=== PATIENT | female | born 1990 | race Caucasian/White ===

== ENCOUNTER 2025-07-20 19:20 | Emergency (ER) | payer BC ==
--- OUTSIDE RECORDS SUMMARY | 2025-07-20 19:23 | XMS REPORT | Continuity of Care Document ---
Author Name Unknown Address [address] [place] [address] [facility] Address [address] [facility] [address] [place] [address] Care Team Providers Care Dam Operator Name Role Phone MIMA ZAIDI Attending Clinician Unavailable Dyan Attending Clinician Unavailable Chiquita Beach Attending Clinician Unavailable Dyan Admitting Clinician Unavailable Chiquita Beach Admitting Clinician Unavailable Payers Payer Name Policy Type Policy Number Effective Date Expirati on Date Source [facility] ([place]) [id number] 2018 00:00:00 2023 00:00:00 Problems Condition Name Condition Details Condition Category Status Onset Date Resolution Date Last Treatment Date Treating Clinician Comments Source Allergic rhinitis Allergic Rhinitis Problem Active [facility] Shoulder pain Shoulder Pain Problem Active [facility] Fatigue Fatigue Problem Active [facility] Allergies, Adverse Reactions, Alerts Allergy Name Allergy Type Status Severity Reaction(s) Onset Date Inactive Date Treating Clinician Comments Source No Known Allergie s DA Active U 04-15 00:00: 00 [facility] Social History Smoking Status Start Date Stop Date Source Never Smoker [facility] Medications Ordered Medication Name Filled Medication Name Start Date Stop Date Current Medication? Ordering Clinician Indication Dosage Frequency Signature (SIG) Comments Components Source ibuprofen ibuprofen No ibuprofen [facility] Zyrtec Zyrtec No Zyrtec [facility] Immunizations Ordered Immunization Name Filled Immunization Name Date Status Comments Source Tdap Tdap Unknown Completed [facility] influenza, injectable, quadrivalent, preservative free influenza, injectable, quadrivalent, preservative free Unknown Completed [facility] Vital Signs Vital Name Observation Time Observation Value Comments S ource BP Diastolic 2025-01-15 00:00:00 71 mm[Hg] [facility] Body Weight 2025-01-15 00:00:00 127.2 [lb_av] [facility] Height 2025-01-15 00:00:00 63 [in_i] [facility] BP Systolic 2025-01-15 00:00:00 112 mm[Hg] [facility] BMI (Body Mass Index) 2025-01-15 00:00:00 22.5 kg/m2 [facility] BMI (Body Mass Index) 2024-12-24 00:00:00 22.5 kg/m2 [facility] Body Weight 2024-12-24 00:00:00 2032 [oz_av] [facility] Height 2024-12-24 00:00:00 63 [in_i] [facility] BP Systolic 2024-12-24 00:00:00 105 mm[Hg] [facility] BP Diastolic 2024-12-24 00:00:00 70 mm[Hg] [facility] BMI (Body Mass Index) 2024-05-27 00:00:00 22.9 kg/m2 [facility] BP Diastolic 2024-05-27 00:00:00 71 mm[Hg] [facility] Body Weight 2024-05-27 00:00:00 2072 [oz_av] [facility] Height 2024-05-27 00:00:00 63 [in_i] [facility] BP Systolic 2024-05-27 00:00:00 106 mm[Hg] [facility] BMI (Body Mass Index) 2023-11-04 00:00:00 22.5 kg/m2 [facility] Body Weight 2023-11-04 00:00:00 2032 [oz_av] [facility] Height 2023-11-04 00:00:00 63 [in_i] [facility] BP Systolic 2023-11-04 00:00:00 101 mm[Hg] [facility] BP Diastolic 2023-11-04 00:00:00 62 mm[Hg] [facility] Procedures Procedure Date / Time Performed Performing Clinicia n Source US, transvaginal 2025-01-22 00:00:00 [facility] [id number] 2022-01-16 00:00:00 [facility] [id number] 2022-01-16 00:00:00 [facility] [id number] 2022-01-16 00:00:00 [facility] Encounters Start Date/Time End Date/Time Encounter Type Admission Type Attending Clinicians Care Facility Care Department Encounter ID Source 2025-01-22 00:00:00 2025-01-22 00:00:00 BREN WhittingtonBC: [address], [address], [place] [address] , Ph. [phone] [facility] [id number] [facility] 2025-01-15 00:00:00 2025-01-15 00:00:00 BREN WhittingtonBC: [address], [address], [place] [address] , Ph. [phone] [facility] [id number] [facility] 2024-12-24 11:58:00 2024-12-24 11:58:00 Outpatient [facility] [id number] [facility] 2024-12-24 00:00:00 2024-12-24 00:00:00 Mima Zaidi, STORAGE MANAGER: [address], [address], [place] [address] , [facility] [phone] [facility] 2024-05-27 00:00:00 2024-05-27 00:00:00 ZULEIKA DuvalC: [address], [address], [place] [address] , Ph. MMG [facility] [phone] [facility] 2024-02-17 00:00:00 2024-02-17 00:00:00 Outpatient [facility] [id number] [facility] 2023-11-04 15:26:00 2023-11-04 15:26:00 Outpatient [facility]Z [facility] [id number] [facility] 2023-11-04 00:00:00 2023-11-04 00:00:00 Mima Zaidi, STORAGE MANAGER: [address] [facility] [address], [address], [place] [address] , [facility]. [facility] [id number] [facility] 2022-01-15 20:08:00 2022-01-17 12:29:00 Inpatient SOTERO Chiquita Beach [facility] OBPP [id number] 27 [facility] 2020-04-25 15:14:00 2020-04-25 15:14:00 Outpatient MIMA [facility]ALEZ [facility] [id number] [facility] 2018-12-01 16:00:00 2018-12-01 16:00:00 Outpatient MIMA [facility]ON[facility]ALEZ [facility] [id number] [facility] 2016-08-01 10:50:00 2016-08-01 10:50:00 Outpatient MIMA [facility]ON[facility]ALEZ [facility] [id number] [facility] Results Test Description Test Time Test Comments Results Result Co mments Source [facility] [id number] 15:30:00* Test Item Value Reference Range Interpretation Comme nts report summary (test code = report summary) Cancer Risk Assessment for Patient: Jason Green (Risk Level: LOW) [facility], [id number] 10:18:52* Test Item Value Reference Range Interpretation Comme nts Test (test code = Test) negative [facility]ysis, [id number] 10:01:39* Test Item Value Reference Range Interpretation Comme nts Leukocytes (test code = Leukocytes) Negative Nitrite (test code = Nitrite) negative Urobilinogen (test code = Urobilinogen) .2 Protein (test code = Protein) Negative pH (test code = pH) 6.5 Blood (test code = Blood) Large Specific Flushing (test code = Specific Flushing) 1.015 Ketone (test code = Ketone) Negative Bilirubin (test code = Bilirubin) Negative Glucose (test code = Glucose) Negative Appearance (test code = Appearance) Clear [facility] GroupEstradiol (E2) [Mass/volume] in Serum or [id number] 00:00:00* Test Item Value Reference Range Interpretation Comme nts Estradiol (E2) [Mass/volume] in Serum or Plasma (test code = 2243-4) 57.4 pg/mL [facility] GroupFollitropin and Lutropin panel [Units/volume] - Serum or [id number] 00:00:00* Test Item Value Reference Range Interpretation Comme nts Lutropin [Units/volume] in S elsy or Plasma (test code = 64204-6) 6.5 mIU/mL [facility] GroupFollitropin [Units/volume] in Serum or [id number] 00:00:00* Test Item Value Reference Range Interpretation Comme nts Follitropin [Units/volume] i n Serum or Plasma (test code = 70311-1) 6.2 mIU/mL [facility] GroupThyrotropin [Units/volume] in Serum or [id number] 00:00:00* Test Item Value Reference Range Interpretation Comme nts Thyrotropin [Units/volume] i n Serum or Plasma by Detection limit <= 0.005 mIU/L (test code = 20012-8) 3.950 uIU/mL 0.450-4.500 [facility] GroupTestosterone [Mass/volume] in Serum or [id number] 00:00:00* Test Item Value Reference Range Interpretation Comme nts Testosterone [Mass/volume] i n Serum or Plasma (test code = 2986-8) <3 8-60 L [facility] HospitalProgesterone [Mass/volume] in Serum or [id number] 00:00:00* Test Item Value Reference Range Interpretation Comme nts Progesterone [Mass/volume] i n Serum or Plasma (test code = 2839-9) <0.1 [facility] GroupProlactin [Mass/volume] in Serum or [id number] 00:00:00* Test Item Value Reference Range Interpretation Comme nts Prolactin [Mass/volume] in S elsy or Plasma (test code = 2842-3) 9.5 NG/mL 4.8-33.4 [facility]all[facility] blood [id number] 11:57:00* Test Item Value Reference Range Interpretation Comme [facility] blood collection (test code = labcorp blood collection) [facility]Jeff[facility] Centerrap[facility] strep group A, [id number] 15:25:33* Test Item Value Reference Range Interpretation Comme [facility] Strep Result (test code = St rep Result) negative [facility] HospitalInfluenza virus A and B and SARS-CoV+SARS-CoV-2 (COVID- 19) Ag panel - Upper respiratory specimen byRapid [id number] 15:25:29 * Test Item Value Reference Range Interpretation Comme [facility] RAPID SARS COV (test code = RAPID SARS COV) positive RAPID FLU A (test code = RAP ID FLU A) negative RAPID FLU B (test code = RAP ID FLU B) negative [facility] HospitalCobalamin (Vitamin B12) [Mass/volume] in Serum or Plasma 2023-11-04 18:38:00* Test Item Value Reference Range Interpretation Comme nts vitamin B12 (test code = vit lucas B12) 551.1 pg/mL 211-946 [facility] HospitalFolate [Mass/volume] in Serum or [id number] 18:38:00* Test Item Value Reference Range Interpretation Comme nts folate (test code = folate) 9.87 NG/mL 4.78-24.2 [facility] Hospitalvitamin [id number] 18:38:00* Test Item Value Reference Range Interpretation Comme nts vitamin B12 (test code = vit lucas B12) 551.1 pg/mL 211-946 [facility] Hospitalfolate2023-12-11 18:38:00* Test Item Value Reference Range Interpretation Comme nts folate (test code = folate) 9.87 NG/mL 4.78-24.2 [facility] HospitalThyrotropin [Units/volume] in Serum or [id number] 17:09:00* Test Item Value Reference Range Interpretation Comme nts thyroid stimulating hormone L (test code = thyroid stimulating hormone L) 1.50 uIU/mL 0.36-3.74 [facility] HospitalComprehensive metabolic 2000 panel - Serum or Plasma 2023-11-04 16:54:00* Test Item Value Reference Range Interpretation Comme nts glucose (test code = glucose) 105 mg/dL 74-106 blood urea nitrogen (test co de = blood urea nitrogen) 9 mg/dL 6-20 osmolality calculated,serum (test code = osmolality calculated,serum) 277 mOsm/kg 280-300 L creatinine (test code = creatinine) 0.55 mg/dL 0.50-0.90 glomerular filtration rate ( test code = glomerular filtration rate) > 60.00 BUN/creatinine ratio (test c ode = BUN/creatinine ratio) 16.4 12.0-20.0 sodium level (test code = so dium level) 139 mmol/L 135-145 potassium level (test code = potassium level) 4.0 mmol/L 3.5-5.2 chloride level (test code = chloride level) 102 mmol/L 98-108 CO2 (test code = CO2) 24 mmol/L 21-32 anion gap (test code = anion gap) 17.0 mEq/L 12.0-20.0 calcium level (test code = calcium level) 9.9 mg/dL 8.6-10.0 total protein (test code = t otal protein) 7.7 g/dL 6.6-8.7 albumin (test code = albumin) 4.8 g/dL 3.5-5.2 globulin (test code = globulin) 2.9 g/dL 1.5-4.5 A/G ratio (test code = A/G ratio) 1.7 >1.0 bilirubin,total (test code = bilirubin,total) 0.4 mg/dL 0.0-1.2 AST/SGOT (test code = AST/SGOT) 12 U/L 15-32 L ALT/SGPT (test code = ALT/SGPT) 11 U/L 0-33 alkaline phosphatase, total (test code = alkaline phosphatase, total) 47 U/L 35-105 [facility] Hospitallipid [id number] 16:54:00* Test Item Value Reference Range Interpretation Comme nts cholesterol level (test code = cholesterol level) 181 mg/dL 150-200 triglycerides level (test co de = triglycerides level) 65 mg/dL <150 HDL cholesterol (test code = HDL cholesterol) 77 mg/dL >65 Cholesterol in LDL [Mass/vol ume] in Serum or Plasma (test code = 2089-1) 96 mg/dL <100 cholesterol risk ratio (test code = cholesterol risk ratio) 2.350 [facility] 1996 panel - Serum or [id number] 16:54:00* Test Item Value Reference Range Interpretation Comme nts cholesterol level (test code = cholesterol level) 181 mg/dL 150-200 triglycerides level (test co de = triglycerides level) 65 mg/dL <150 HDL cholesterol (test code = HDL cholesterol) 77 mg/dL >65 Cholesterol in LDL [Mass/vol ume] in Serum or Plasma (test code = 2089-1) 96 mg/dL <100 cholesterol risk ratio (test code = cholesterol risk ratio) 2.350 [facility] HospitalCB W Auto Differential panel - [id number] 16:26:00 * Test Item Value Reference Range Interpretation Comme nts white blood count (test code = white blood count) 10.7 K/uL 4.0-11.5 red blood count (test code = red blood count) 4.36 M/uL 3.80-5.20 hemoglobin (test code = hemoglobin) 13.0 g/dL 10.5-15.7 hematocrit (test code = hematocrit) 40.2 % 34.0-50.0 mean corpuscular volume (santosh t code = mean corpuscular volume) 92.2 fL 86.0-100.0 mean corpuscular hemoglobin (test code = mean corpuscular hemoglobin) 29.8 pg 26.2-33.4 mean corpuscular HGB conc (t est code = mean corpuscular HGB conc) 32.3 g/dL 30.0-34.0 red cell distribution width (test code = red cell distribution width) 12.1 % 12.0-15.5 platelet count (test code = platelet count) 230 K/uL 165-450 mean platelet volume (test c ode = mean platelet volume) 10.4 fL 9.4-12.6 neutrophils % (test code = neutrophils %) 71.0 % 44.4-80.1 Ig% (test code = Ig%) 0.4 % 0.0-0.4 lymphocyte% (test code = lymphocyte%) 19.8 % 10.0-50.0 mono % (test code = mono %) 6.8 % 3.6-12.0 eos % (test code = eos %) 1.6 % 0.0-5.4 basophil % (test code = baso shashi %) 0.4 % 0.1-1.2 absolute neutrophil count (t est code = absolute neutrophil count) 7.63 K/uL 1.56-6.13 H Ig# (test code = Ig#) 0.04 K/uL 0.00-0.03 H lymph # (test code = lymph #) 2.13 K/uL 1.18-3.74 mono # (test code = mono #) 0.73 K/uL 0.24-0.86 eos # (test code = eos #) 0.17 K/uL 0.04-0.36 basophil # (test code = baso shashi #) 0.04 K/uL 0.01-0.08 NRBC% (test code = NRBC%) 0 /100 WBC 0-0.2 NRBC# (test code = NRBC#) 0 K/uL [facility]25-Hydroxyvitamin D3+25-Hydroxyvitamin D2 [Mass/volume] in Serum or [id number] 00:00:00* Test Item Value Reference Range Interpretation Comme nts vit D 25 hydroxy (test code = vit D 25 hydroxy) 18.83 NG/mL 6.4-49.5 [facility]AB [id number] 20:11:00* Test Item Value Reference Range Interpretation Comme nts AB TREPONEMA (test code = TREPAB) NONREACTIVE NONREACTIVE AB HIV 1 20:11:00* Test Item Value Reference Range Interpretation Comme nts AB HIV 1 2 (test code = JBJ57OI) NONREACTIVE NONREACTIVE Done by [employer] 4th Gen HIV Ag/Ab Combo Screen AG HEPATITIS B [id number] 20:11:00* Test Item Value Reference Range Interpretation Comme nts AG HEPATITIS B SURFACE (test code = HBSAG) NONREACTIVE NONREACTIVE AB HEPATITIS C [id number] 20:11:00* Test Item Value Reference Range Interpretation Comme nts AB HEPATITIS C (test code = HCVAB) NONREACTIVE NONREACTIVE SIGNAL TO CUTOFF (test code = CUTOFF) 0.09 <0.80 N COVID 19 Asymptomatic IH [id number] 19:09:00* Test Item Value Reference Range Interpretation Comme nts COVID 19 Asymptomatic IH AG (test code = COVNONPUIAG) NEGATIVE NEGATIVE This test has be en authorized only for the detection ofproteins from SARS-CoV-2, not for any other viruses orpathogens. Negative results should be treated as presumptive andconfirmed with a molecular assay, if necessary for patientmanagement. Negative results do not rule out COVID-19 andshould not be used as the sole basis for treatment orpatient management decisions, including infection controldecisions. Negative results should be considered in thecontext of a patient's recent exposures, history and thepresence of clinical signs and symptoms consistent withCOVID-19. This test has not been FDA cleared or approved; the test hasbeen authorized by FDA under an Emergency Use Authorization(EUA) for use by laboratories certified under the CLIA thatmeet the requirements to perform moderate, high or waivedcomplexity tests. This test is authorized for use at thePoint of Care (POC), i.e., in patient care settingsoperating under a CLIA Certificate of Waiver, Certificate ofCompliance, or Certificate of Accreditation. This test is only authorized for the duration of thedeclaration that circumstances exist justifying theauthorization of emergency use of in vitro diagnostic testsfor detection and/or diagnosis of COVID-19 under Zmezkiu529(b)(1) of the Act, 21 U.S.C. 360bbb-3(b)(1), unless theauthorization is terminated or revoked sooner. CBC W/AUTO [id number] 18:35:00* Test Item Value Reference Range Interpretation Comme nts WHITE BLOOD CELL (test code = WBC) 11.1 K/mm3 6.5-12.3 N RED BLOOD CELL (test code = RBC) 3.58 M/mm3 3.51-4.69 N HEMOGLOBIN (test code = HGB) 11.1 g/dL 10.1-13.8 N HEMATOCRIT (test code = HCT) 34.0 % 32.5-41.8 N MEAN CELL VOLUME (test code = MCV) 95.0 fL 84.6-96.6 N MEAN CELL HGB (test code = MCH) 31.0 pg 27.3-33.9 N MEAN CELL HGB CONCETRATION ( test code = MCHC) 32.6 gm/dL 32.0-34.2 N RED CELL DISTRIBUTION WIDTH (test code = RDW) 13.7 % 12.2-16.3 N PLATELET COUNT (test code = PLT) 191 K/mm3 134-363 N MEAN PLATELET VOLUME (test c ode = MPV) 11.0 fL 9.2-12.7 N NEUTROPHIL % (test code = NT%) 74.3 % 57.9-77.3 N LYMPHOCYTE % (test code = LY%) 15.6 % 14.5-29.7 N MONOCYTE % (test code = MO%) 7.5 % 3.6-10.2 N EOSINOPHIL % (test code = EO%) 0.7 % 0.0-3.0 N BASOPHIL % (test code = BA%) 0.4 % 0.1-0.9 N NEUTROPHIL # (test code = NT#) 8.3 K/mm3 LYMPHOCYTE # (test code = LY#) 1.7 K/mm3 MONOCYTE # (test code = MO#) 0.8 K/mm3 EOSINOPHIL # (test code = EO#) 0.08 K/mm3 BASOPHIL # (test code = BA#) 0.0 K/mm3 RBC MORPHOLOGY REQUIRED (santosh t code = RBCM) NORMAL NORMAL PLATELET MORPHOLOGY REQUIRED (test code = PLTMR) NORMAL NORMAL Notes Date/Time Note Provider Source 2022-01-17 06:43:00 [facility] OB Disch REPORT#:[id number] REPORT STATUS: Signed DATE:01/17/22 TIME: 642 PATIENT: JASON GREEN UNIT #: [id number] ROOM/BED: [address] : [address] AGE: 31 SEX: F ATTEND: Chiquita Beach MD ADM AUTHOR: Chiquita Beach MD * ALL edits or amendments must be made on the electronic/computer document * Subjective Subjective Admission EGA: Weeks: 39 Days: 6 EGA at delivery (wks/days): 40 weeks Status/day: post (day 1) Patient reports: Patient reports: Yes: normal lochia, pain management effective, tolerating po well, voiding well, voiding without pain, tolerating ambulation, flatus. No: complaints. Objective General VS: Vital Signs Date Temp Pulse Resp B/P B/P Mean Pulse Ox FiO2 01/16 98.0-98.6 71-82 17-18 103-113/-74 98 Last Documented: Result Date Time B/P 11301/16 Temp 98.6 01/16 2339 Pulse 71 01/16 233 Resp 18 01/16 2339 Pulse Ox 98 01/16 0829 B/P Mean 88.0 01/16 0413 PATIENT WEIGHT: Weight (lb): 171 Weight (oz): 4.79 Weight (kg): 77.700 Physical Exam Abdomen: post gravid, soft, no abnormal tenderness, no guarding, no rebound tenderness Fundus: firm, below the umbilicus, non-tender Lochia: normal Lower extremities: Edema: trace Results Findings/Data: Laboratory Tests: 01/15 01/15 01/15 1805 1805 1749 Hematology WBC (6.5 - 12.3 K/mm3) 11.1 RBC (3.51 - 4.69 M/mm3) 3.58 Hgb (10.1 - 13.8 g/dL) 11.1 Hct (32.5 - 41.8 %) 34.0 MCV (84.6 - 96.6 fL) 95.0 MCH (27.3 - 33.9 pg) 31.0 MCHC (32.0 - 34.2 gm/dL) 32.6 RDW (12.2 - 16.3 %) 13.7 Plt Count (134 - 363 K/mm3) 191 MPV (9.2 - 12.7 fL) 11.0 Neut % (Auto) (57.9 - 77.3 %) 74.3 Lymph % (Auto) (14.5 - 29.7 %) 15.6 Benton % (Auto) (3.6 - 10.2 %) 7.5 Eos % (Auto) (0.0 - 3.0 %) 0.7 Baso % (Auto) (0.1 - 0.9 %) 0.4 Neut # (Auto) (K/mm3) 8.3 Lymph # (Auto) (K/mm3) 1.7 Benton # (Auto) (K/mm3) 0.8 Eos # (Auto) (K/mm3) 0.08 Baso # (Auto) (K/mm3) 0.0 Serology Treponema pallidum Ab (NONREACTIVE) NONREACTIVE Hep Bs Antigen (NONREACTIVE) NONREACTIVE Hepatitis C Antibody (NONREACTIVE) NONREACTIVE Hep C Ab Signal/Cutoff (<0.80) 0.09 HIV 1 2 Antibody (NONREACTIVE) NONREACTIVE SARS-CoV-2 Ag (Rapid) (NEGATIVE) NEGATIVE Discharge Summary General Free Text A P: 31y s/p TSVD at 40.0 here for eIOL 1. PPD 1 - afvss, voiding, pain controlled, tolerating diet 2. Rh+/RI/; GBS neg, COVID neg 3. PMH: mitral valve prolapse 4. PSH: denies 5. OB: baby girl! Lissa Del Real 6. Anticipate dc home today if infant cleared for discharge, will put in discharge order with parameters. Assessment: nml progress Date of admission: Date of admission: 01/15/22 Hospital course: induction of labor Discharge condition: stable Discharge to: Home/Self Care Discharge diagnosis: full-term uncomp delivery Discharge management: greater than 30 mins Time spent: >50% spent on counseling/coordination of care: yes Baby A: Vaginal delivery: spontaneous status: live born Gender: female (Lissa Del Real) 1 minute: 8 5 minutes: 9 Nursing data: The data set between the solid lines has been imported from nursing documentation. Any exceptions have been noted below under Provider comments. Delivery date infant A: 01/16/22 Delivery time infant A: 0054 Birthweight (gm) A: 2890 Feeding preference: Gender infant A: Female 1 minute infant A: 5 minutes infant A: 10 minutes infant A: Provider comments on imported nursing data: [] Plan: routine care Vaginal packing at delivery: No Discharge Instructions Instructions: routine instr sheet given, instr and warnings rev'd, specific instr as noted Diet: Resume Home Diet/Feeds, Regular Activity: As Tolerated Additional discharge routines: PCP Follow-Up Contraception discussed: abstinence for 4-6 weeks, will discuss at PP visit Discharge meds: Continue taking these medications: PNV WITH CA/IRON/FA/DHA (PRENATE ESSENTIAL) 1 EACH CAP 1 CAPSULE ORAL DAILY. CALCIUM CARBONATE (CALCI-CHEW 1250 MG) 1 TAB.CHEW TAB.CHEW 500 MILLIGRAM ORAL DAILY. IRON (IRON) 18 MG TAB Start taking the following new medications: IBUPROFEN (MOTRIN) 600 MG TAB 600 MILLIGRAM ORAL EVERY 6 HOURS NEEDED. as needed for PAIN SCALE 1-3 ( USE 2ND) Qty = 20 No Refills Prescriptions: e-prescribe at 0723 RPT #:[id number] END OF REPORT [facility] 2022-01-16 08:29:00 [facility] OB Postpart Progr Note REPORT#:[id number] REPORT STATUS: Signed DATE:01/16/22 TIME: 828 PATIENT: JASON GREEN UNIT #: [id number] ROOM/BED: [address] : [birth year] AGE: 31 SEX: F ATTEND: Chiquita Beach MD ADM AUTHOR: Chiquita Beach MD * ALL edits or amendments must be made on the electronic/computer document * Subjective Subjective Admission EGA: Weeks: 39 Days: 6 EGA at delivery (wks/days): 40 weeks Status/Day: post (day 0) Patient reports: Patient reports: Yes normal lochia, Yes pain management effective, Yes tolerating po well, Yes voiding well, Yes voiding without pain, Yes tolerating ambulation, Yes flatus, No no complaints Objective Nursing Documentation Review Nursing Data: The data set between the solid lines has been imported from nursing documentation. Any exceptions have been noted below under Provider comments. Feeding preference: Post hemorrhage risk score: Low Risk for Hemorrhage Provider comments on imported nursing data: [] General VS: Vital Signs: Date Time Temp Pulse Resp B/P B/P Pulse O2 O2 Flow FiO2 Mean Ox Delivery Rate 01/16 0413 88.0 01/16 0413 78 116/70 01/16 0358 93.0 01/16 0358 72 129/69 01/16 0345 70.0 01/16 0345 78 114/56 01/16 0328 83.0 01/16 0328 73 116/61 01/16 0313 80.0 01/16 0313 78 117/60 01/16 0258 83.0 01/16 0258 67 111/65 01/16 0243 80.0 01/16 0243 65 109/62 01/16 0228 90.0 01/16 0228 69 116/75 01/16 0213 84.0 01/16 0213 70 114/69 01/16 0158 81.0 01/16 0158 72 102/70 01/16 0153 82.0 01/16 0153 70 108/67 01/16 0131 77.0 01/16 0131 69 123/53 01/16 0110 77.0 01/16 0110 97.8 73 16 102/60 01/16 0105 70.0 01/16 0105 68 94/55 01/16 0100 78.0 01/16 0100 74 111/54 01/16 0048 74.0 01/16 0048 56 105/51 01/16 0041 73.0 01/16 0041 78 101/55 01/16 0031 75.0 01/16 0031 81 100/65 01/15 191 85.0 01/15 191 98.4 84 16 121/62 PATIENT WEIGHT: Weight (lb): 171 Weight (oz): 4.79 Weight (kg): 77.700 Physical Exam Neuro: Exam: alert, oriented x3, normal speech Abdomen: soft, no abnormal tenderness, no guarding, no rebound tenderness, normoactive bowel sounds Fundus: firm, below the umbilicus Lochia: normal Lacerations: Perineal laceration(s): 1st Degree High vaginal laceration: no Lower extremities: Edema: trace Result Findings/Data: Laboratory Tests: 01/15 01/15 01/15 1805 1805 1749 Hematology WBC (6.5 - 12.3 K/mm3) 11.1 RBC (3.51 - 4.69 M/mm3) 3.58 Hgb (10.1 - 13.8 g/dL) 11.1 Hct (32.5 - 41.8 %) 34.0 MCV (84.6 - 96.6 fL) 95.0 MCH (27.3 - 33.9 pg) 31.0 MCHC (32.0 - 34.2 gm/dL) 32.6 RDW (12.2 - 16.3 %) 13.7 Plt Count (134 - 363 K/mm3) 191 MPV (9.2 - 12.7 fL) 11.0 Neut % (Auto) (57.9 - 77.3 %) 74.3 Lymph % (Auto) (14.5 - 29.7 %) 15.6 Benton % (Auto) (3.6 - 10.2 %) 7.5 Eos % (Auto) (0.0 - 3.0 %) 0.7 Baso % (Auto) (0.1 - 0.9 %) 0.4 Neut # (Auto) (K/mm3) 8.3 Lymph # (Auto) (K/mm3) 1.7 Benton # (Auto) (K/mm3) 0.8 Eos # (Auto) (K/mm3) 0.08 Baso # (Auto) (K/mm3) 0.0 Serology Treponema pallidum Ab (NONREACTIVE) NONREACTIVE Hep Bs Antigen (NONREACTIVE) NONREACTIVE Hepatitis C Antibody (NONREACTIVE) NONREACTIVE Hep C Ab Signal/Cutoff (<0.80) 0.09 HIV 1 2 Antibody (NONREACTIVE) NONREACTIVE SARS-CoV-2 Ag (Rapid) (NEGATIVE) NEGATIVE Diagnosis, Assessment Plan Diagnosis, Assessment Plan Free text A P: 31y s/p TSVD at 40.0 here for eIOL 1. PPD 0 - afvss, voiding, pain controlled, tolerating diet 2. Rh+/RI/; GBS neg, COVID neg 3. PMH: mitral valve prolapse 4. PSH: denies 5. OB: baby girl! Lissa Del Real 6. Anticipate dc home PPD 1/ Assessment: nml progress Plan: routine care Plan discussed with: patient, spouse/partner at 0931 RPT #:[id number] END OF REPORT [facility] 2022-01-16 01:38:00 [facility] ([facility]) OB Delivery Note REPORT#:[id number] REPORT STATUS: Signed DATE:01/16/22 TIME: 137 PATIENT: JASON GREEN UNIT #: [id number] ROOM/BED: [address] : 91 AGE: 31 SEX: F ATTEND: Chiquita Beach MD ADM AUTHOR: Jessenia Carbajal MD * ALL edits or amendments must be made on the electronic/computer document * OB Delivery Pre-delivery GBS status: GBS status: negative [place] evaluation at delivery: NRP certified personnel Admission EGA: Weeks: 39 Days: 6 EGA at delivery (wks/days): 40 weeks Baby A Information Baby A information Delivery date: 01/16/22 Delivery time: 53 status: live born Wt of baby: not yet available Gender: female (Lissa Del Real) 1 minute: 8 5 minutes: 9 Presentation: vertex ABG details Baby A Cord blood gases: not collected Nuchal cord Baby A Nuchal cord: yes (loose and reduced) Vaginal Delivery Vaginal delivery: Labor: induced Medications/Devices used: oxytocin Vaginal delivery: spontaneous Amniotic fluid: clear Anesthesia type: epidural anesthesia Episiotomy: none Episiotomy repair: not applicable Laceration repair: yes, 2-0 suture Placenta: spontaneous, expressed, intact Post delivery meds used: oxytocin Count: correct, vag exam neg for sponges Vaginal packing: No Mother's condition: mother stable Infant's condition: infant stable in room Lacerations: Perineal laceration(s): 1st Degree High vaginal laceration: no Additional comments: As the head crowned and delivered, the perineum was protected with blue towel. The anterior shoulder delivered with gentle downward traction and posterior shoulder with gentle upward traction. A nuchal cord x1 was noted and easily reduced. The infant was placed on maternal abdomen, bulb suctioned, the cord clamped and cut after 60 seconds, then handed to the waiting mother. Placenta delivered spontaneously and intact. Hemostasis achieved with fundal massage and IV pitocin. A small 1st degree perineal laceration was noted and repaired with figure of eight of 2-0 vicryl. Sponge, lap, and needle counts correct x 2, lap scan negative. Good maternal-infant bonding noted Blood Loss/Details Blood loss at delivery: <1K: no sx hypovol=no hem QBL at delivery (ml's): 87 at 0140 RPT #:[id number] END OF REPORT [facility] 2022-01-15 21:22:00 [facility] ([facility]) Clinical Note REPORT#:[id number] REPORT STATUS: Signed DATE:01/15/22 TIME: 2121 PATIENT: JASON GREEN UNIT #: [id number] ROOM/BED: [address] : 91 AGE: 31 SEX: F ATTEND: Chiquita Beach MD ADM AUTHOR: Jessenia Carbajal MD * ALL edits or amendments must be made on the electronic/computer document * Clinical Note Note: see paper H P 31y at 39w6d here for eIOL 1. IOL - pelvis adequate - epidural prn - pit 2x2, s/p arom 2. Rh+/RI/; GBS neg, COVID neg 3. PMH: mitral valve prolapse 4. PSH: denies 5. OB: baby girl! Lissa Del Real, EFW 3400g dispo: continue IOL, anticipate at 2126 RPT #:[id number] END OF REPORT [facility]
[2025-07-20 19:56] LABS: Absolute Lymphocytes (CBC) 2.1 K/uL (0.7-4.9); Hematocrit 34.5 % (36.0-45.0); Hemoglobin 11.7 g/dL (12.0-15.0); MCH 31.1 pg (27.0-35.0); MCHC 34.0 g/dL (32.0-36.0); MCV 91.6 fL (80-100); MPV 8.5 fL (7.6-11.3); Nucleated RBC Absolute Count 0.0 (0-0); Nucleated Red Blood Cells % 0.0 % (0-0); RBC Red Blood Cell Count 3.76 M/uL (3.86-4.86); White Blood Count 8.40 thou/uL (4.3-10.9)
[2025-07-20 20:30] LABS: Anion Gap 8.2 mEq/L (5.0-15.0); BUN Blood Urea Nitrogen 11.0 mg/dL (7-18); Glucose Level 90.0 mg/dL (74-106); HCG, Quantitative 10913.0 mIU/mL (1-3); Potassium 3.2 mEq/L (3.5-5.1)
--- NOTE | 2025-07-20 20:42 | RAD REPORT ---
EXAMINATION: US FIRST TRIMESTER TRANSVAGINAL WITH DOPPLER CLINICAL INDICATION: with pelvic pain TECHNIQUE: Real-time obstetrical ultrasonography of the maternal pelvis and first trimester was performed transvaginally. Color and spectral Doppler evaluation of the ovaries was performed. COMPARISON: No prior exam. FINDINGS: The uterus measures 10 x 6 x 6 cm. A gestational sac is present within the endometrium measuring 8 mm. Within this is a yolk sac. pole with a crown rump length 3 mm. Cardiac activity 144 bpm. Right ovary normal in size and echotexture Left ovary normal in size and echotexture Right and left adnexa unremarkable No significant free fluid IMPRESSION: Single live intrauterine with an estimated gestational age 5 weeks 5 days JACLYN 03/17/2026
--- NOTE | 2025-07-20 21:40 | ER ---
Nurse's Notes [facility] Name: Bell Washington Age: 35 yrs Sex: Female : 1990 Arrival Date: 07/20/2025 Time: 19:20 Bed 19 Private MD: Diagnosis: Threatened Presentation: 07/20 19:41 Chief complaint: Patient states: with light spotting for a week. Did see OB me1 but today patient had an episode of bleeding that was worse. Abdominal cramping that radiates to lower back today. 01/04. A1. LMP 06/12/25. Coronavirus screen: Vaccine status: Patient reports being unvaccinated. Ebola Screen: No symptoms or risks identified at this time. Initial Sepsis Screen: Does the patient meet any 2 criteria? No. Patient's initial sepsis screen is negative. Does the patient have a suspected source of infection? No. Patient's initial sepsis screen is negative. Risk Assessment: Do you want to hurt yourself or someone else? Patient reports no desire to harm self or others. Onset of symptoms was July 13, 2025. 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 - Infectious Disease History:: Denies. - Social history:: Smoking status: Patient denies any tobacco usage or history of. Screenin:58 [facility] ED Fall Risk Assessment (Adult) History of falling in the last 3 months, jb4 including since admission No falls in past 3 months (0 pts) Confusion or Disorientation No (0 pts) Intoxicated or Sedated No (0 pts) Impaired Gait No (0 pts) Mobility Assist Device Used No (0 pt) Altered Elimination No (0 pt) Score/Fall Risk Level 0 - 2 = Low Risk Oriented to surroundings, Maintained a safe environment. Abuse screen: Denies threats or abuse. Nutritional screening: No deficits noted. Tuberculosis screening: No symptoms or risk factors identified. Assessment: 20:33 General: Appears in no apparent distress. comfortable, Behavior is calm, cooperative, jb4 appropriate for age. Pain: Complains of pain in abdomen Pain does not radiate. Pain currently is 2 out of 10 on a pain scale. Neuro: Level of Consciousness is awake, alert, obeys commands, Oriented to person, place, time, situation. Cardiovascular: Patient's skin is warm and dry. Respiratory: Airway is patent Respiratory effort is even, unlabored, Respiratory pattern is regular, symmetrical. : Reports vaginal bleeding that is. Derm: Skin is intact, Skin is pink, warm \T\ dry. Musculoskeletal: Circulation, motion, and sensation intact. Range of motion: intact in all extremities. 21:35 Reassessment: Patient appears in no apparent distress at this time. Patient and/or jb4 family updated on plan of care and expected duration. Pain level reassessed. Patient is alert, oriented x 3, equal unlabored respirations, skin warm/dry/pink. Vital Signs: 19:41 BP 102 / 63; Pulse 85; Resp 17; Temp 98.4; Pulse Ox 100% ; Weight 56.7 kg; Height 5 ft. me1 3 in. ; Pain 2/10; 20:33 BP 116 / 96; Pulse 80; Resp 16; Pulse Ox 100% on R/A; jb4 19:41 Body Mass Index 22.14 (56.70 kg, 160.02 cm) me1 19:41 Pain Scale: Adult [facility] ED Course: 19:22 Patient arrived in ED. mr 19:23 Marie [facility]-C [facility] kb 19:23 Ant Mart MD is Attending Physician. kb 19:46 Triage completed. me1 19:46 Arm band placed on Patient placed in an exam room. me1 19:53 Initial lab(s) drawn, by cath lab manager, sent to lab. Inserted saline lock: 20 gauge in right ts3 antecubital area, using aseptic technique. Blood collected. Flushed with 10 mL NS. 19:53 Urine collected: clean catch specimen, sent to lab. ts3 20:34 Transvaginal Ob In Process Unspecified. EDMS 21:58 Farrukh Triana RN is Primary Nurse. 4 21:58 Patient has correct armband on for positive identification. Bed in low position. Call jb4 light in reach. Side rails up X 1. Provided Education on: discharge instructions.. 21:58 No provider procedures requiring assistance completed. IV discontinued, intact, jb4 bleeding controlled, No redness/swelling at site. Pressure dressing applied. Administered Medications: No medications were administered Outcome: 21:39 Discharge ordered by MD. kim 21:58 Discharged to home ambulatory, with family, jb4 21:58 Condition: stable 21:58 Discharge instructions given to patient, Instructed on discharge instructions, follow up and referral plans. Demonstrated understanding of instructions, follow-up care, 21:59 Patient left the ED. jb4 Signatures: Dispatcher [employer] EDMS Marie Gray, JETTING MACHINE OPERATOR-C JETTING MACHINE OPERATOR-Ckb Elza Forbes, Reg Reg mr Farrukh Triana, RN RN jb4 Rossi Orozco, BENJAMIN RN me1 Aj, Addie 3
--- NOTE | 2025-07-20 21:40 | EDPHYS ---
Physician Documentation [facility] Name: Bell Washington Age: 35 yrs Sex: Female : 1990 Arrival Date: 07/20/2025 Time: 19:20 Bed 19 Private MD: ED Physician Ant Mart HPI: 07/20 21:44 This 35 yrs old Female presents to ER via Ambulatory with complaints of Vaginal kb Bleeding, + Preg <12wks. 21:44 Patient is a 35-year-old female who presents for vaginal bleeding. States she has had kb spotting for about a week and is followed up with her OB who has been trending her hCG levels. States the bleeding became heavier tonight with cramping in her lower abdomen that started today. LMP 06/12/2025. 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 - Infectious Disease History:: Denies. - Social history:: Smoking status: Patient denies any tobacco usage or history of. ROS: 21:44 Constitutional: As per HPI kb Exam: 21:44 Constitutional: This is a well developed, well nourished patient who is awake, alert, kb and in no acute distress. Head/Face: Normocephalic, atraumatic. ENT: Moist Mucous membranes Cardiovascular: Regular rate Respiratory: Respirations even and unlabored. No increased work of breathing. Talking in full sentences Abdomen/GI: Soft, non-tender. No distention Skin: Warm, dry with normal turgor. Normal color. MS/ Extremity: Pulses equal, no cyanosis. Neurovascular intact. Full, normal range of motion. Neuro: Awake and alert, GCS 15, oriented to person, place, time, and situation. Vital Signs: 19:41 BP 102 / 63; Pulse 85; Resp 17; Temp 98.4; Pulse Ox 100% ; Weight 56.7 kg; Height 5 ft. me1 3 in. ; Pain 2/10; 20:33 BP 116 / 96; Pulse 80; Resp 16; Pulse Ox 100% on R/A; jb4 19:41 Body Mass Index 22.14 (56.70 kg, 160.02 cm) me1 19:41 Pain Scale: Adult me1 MDM: 19:23 Medical Screening Exam initiated kb 21:38 Data reviewed: vital signs, nurses notes. External Records Reviewed: Outpatient labs: kb labs reviewed from [facility]. Pt is O positive based on those labs. Counseling: I had a detailed discussion with the patient and/or guardian regarding the historical points, exam findings, and any diagnostic results supporting the discharge/admit diagnosis, lab results, radiology results, the need for outpatient follow up, an OB/Gyne specialist, to return to the emergency department if symptoms worsen or persist or if there are any questions or concerns that arise at home. 21:45 Differential diagnosis: threatened Ab, inevitable Ab, ectopic . Historians kb other than the Patient: Parent: Mother. 07/20 19:28 Order name: Basic Metabolic Panel; Complete Time: 20:31 kb 07/20 19:28 Order name: CBC with Diff; Complete Time: 19:59 kb 07/20 19:28 Order name: Test, Urine; Complete Time: 20:23 kb 07/20 19:28 Order name: Quantitative Hcg; Complete Time: 20:31 kb 07/20 19:28 Order name: US Transvaginal Ob; Complete Time: 20:53 kb 07/20 19:28 Order name: IV Saline Lock; Complete Time: 19:52 kb 07/20 19:28 Order name: Labs collected and sent; Complete Time: 19:52 kb 07/20 19:28 Order name: NPO; Complete Time: 19:52 kb Administered Medications: No medications were administered Disposition: 07/21 06:04 I reviewed the patient's care provided by Advanced Practice Provider \T\ agree w/ the tw7 diagnosis \T\ care plan. I personally saw the pt \T\ performed a substantive portion of the visit, incldng all aspects of the (History/Exam/Medical Decision Making). Disposition Summary: 07/20/25 21:39 Discharge Ordered Notes: Location: Home kb Condition: Stable kb Diagnosis - Threatened kb Followup: kb - With: Emergency Department - When: As needed - Reason: Worsening of condition Followup: kb - With: Private Physician - When: 2 - 3 days - Reason: Recheck today's complaints, Continuance of care, Re-evaluation by your physician Discharge Instructions: - Discharge Summary Sheet kb - Threatened Miscarriage, [id number] kb - Vaginal Bleeding During , First Trimester, [id number] kb Forms: - Medication Reconciliation Form kb - Antibiotic Education kb - Prescription Opioid Use kb - Patient Portal Instructions kb - Leadership Thank You Letter kb Signatures: Dispatcher [employer] EDMarie Lorenzo, LINE FIXER-C TARAN-Rossi Morris, RN RN me1 Ant Mart MD MD tw7 Corrections: (The following items were deleted from the chart) 07/20 19:29 19:29 ABO/RH TYPING+BB.LAB.BRZ ordered. EDMS EDMS 19:29 19:29 BASIC METABOLIC PANEL+C.LAB.BRZ ordered. EDMS EDMS 19:29 19:29 CBC+H.LAB.BRZ ordered. EDMS EDMS 19:29 19:29 Test, Urine+UC.LAB.BRZ ordered. EDMS EDMS 19:29 19:29 QUANTITATIVE HCG+C.LAB.BRZ ordered. EDMS EDMS 19:29 19:29 Transvaginal Ob+US.RAD.BRZ ordered. EDMS EDMS
[2025-07-21 02:34] VITALS: TEMP 98.4; O2SAT 100
[2025-07-21 02:36] VITALS: BP 116/96
== END 2025-07-20 21:59 | disposition home or self-care (01) ==
LOC: ER 19:20
DX: O20.0 Threatened abortion (principal)
CPT/HCPCS: 36415; 76817; 80048; 81025; 84702; 85025; 86900; 86901